=== PATIENT | male | born 2000 | race Caucasian/White ===

== ENCOUNTER 2018-05-13 03:07 | Emergency (ER) | payer MEDICAID ==
[~2018-05-13] VITALS: Ht 172.7 cm; Wt 74.8 kg
--- NOTE | 2018-05-13 03:26 | NUR ---
BBSELF FROM [employer] [facility] C/C "I FEEL MY HEART BEATING QUICKLY W/ TINGLING SENSATION TO LEFT JAW".-SOB. -CP. HX OF ANXIETY DISORDER. DENIES DRUGS.-N/V. PT IS AOX4, RESPIRATIONS EVEN AND UNLABORED. HYPERTENSIVE AND TACHYCARDIC. FRIEND AT BEDSIDE. READY FOR EVAL.
--- NOTE | 2018-05-13 03:27 | NUR ---
DR MCDONALD AT BEDSIDE
[2018-05-13] MEDS ORDERED: LORAZEPAM 0.5 MG TABLET PO ONE (03:30)
[2018-05-13] MEDS ORDERED: LORAZEPAM 1 MG TABLET ONE (03:33)
--- NOTE | 2018-05-13 03:50 | NUR ---
XRAY AT BEDSIDE
--- NOTE | 2018-05-13 04:54 | NUR ---
Patient discharged to home in stable condition. Written and verbal after care instructions given. Patient verbalizes understanding of instruction.
[2018-05-13 04:55] VITALS: BP 140/78
== END 2018-05-13 04:56 | disposition home or self-care (01) ==
LOC: ER 03:10
DX: F41.9 Anxiety disorder, unspecified (principal); T43.615A Adverse effect of caffeine, initial encounter; R00.0 Tachycardia, unspecified; F10.10 Alcohol abuse, uncomplicated; F17.200 Nicotine dependence, unspecified, uncomplicated; Y90.9 Presence of alcohol in blood, level not specified; Y92.89 Other specified places as the place of occurrence of the external cause
CPT/HCPCS: 71045; 93005; 99284; A4606; Z7610